=== PATIENT | male | born 1955 | race Caucasian/White ===

== ENCOUNTER → 2023-10-02 15:05 | Outpatient (REF) | payer MEDICARE, OTHER, SELFPAY | LOC: RAD 15:05 | PROVIDERS: ATTENDING PHYSICIAN Neurological Surgery | DX: I77.71 Dissection of carotid artery (principal) | CPT/HCPCS: 93880 ==

== ENCOUNTER → 2024-11-07 12:51 | Outpatient (REF) | payer MEDICARE, OTHER, SELFPAY | LOC: RAD 12:51 | PROVIDERS: ATTENDING PHYSICIAN Neurological Surgery; FAMILY PHYSICIAN Physician Assistant Medical | DX: I77.71 Dissection of carotid artery (principal) | CPT/HCPCS: 93880 ==